=== PATIENT | female | born 1955 | race Caucasian/White ===

== ENCOUNTER 2017-05-07 12:29 | Emergency (ER) | payer BC ==
[2017-05-07 12:41] VITALS: BP 148/70
--- NOTE | 2017-05-07 13:06 | EDM.PDOC ---
ED HPI GENERAL MEDICAL PROBLEM - General Chief Complaint: Genitourinary Problem Stated Complaint: [id number] UTI Time Seen by Provider: 05/07/17 13:02 Source of Information: Reports: Patient History Limitations: Reports: No Limitations - History of Present Illness INITIAL COMMENTS - FREE TEXT/NARRATIVE: 62 yo White female c/o painful urination with frequency since this AM Onset: Today Onset Date: 05/07/17 Onset Time: 08:00 Duration: Hour(s): Location: Reports: Abdomen Quality: Reports: Burning Severity: Mild Lower Abdomen Pain Score (Numeric/FACES): 8 - Related Data Allergies Allergy/AdvReac Type Severity Reaction Status Date / Time corn [[place]] Allergy Stomach Verified 05/07/17 12:37 Upset hydrocodone Allergy Tachycardia Verified 05/07/17 12:37 ibuprofen Allergy Swelling Verified 05/07/17 12:37 milk Allergy Nausea and Verified 05/07/17 12:37 Vomiting wheat Allergy Stomach Verified 05/07/17 12:37 Upset Home Meds: Home Meds Hydrochlorothiazide 12.5 mg PO DAILY 03/23/14 [History] Lisinopril [Prinivil] 40 mg PO DAILY 03/23/14 [History] Metoprolol Tartrate 50 mg PO DAILY 03/23/14 [History] Montelukast [Singulair] 10 mg PO DAILY 03/23/14 [History] glyBURIDE [Diabeta] 1.25 mg PO BIDM 03/23/14 [History] metFORMIN [Glucophage] 1,000 mg PO BIDM 03/23/14 [History] Past Medical History Cardiovascular History: Reports: Hypertension Endocrine/Metabolic History: Reports: Diabetes, Type II Dermatologic History: Reports: Psoriasis - Past Surgical History Female Surgical History: Reports: Section Social & Family History - Family History Family Medical History: Noncontributory - Tobacco Use Smoking Status *Q: Never Smoker Second Hand Smoke Exposure: No - Caffeine Use Caffeine Use: Reports: Tea - Alcohol Use Days Per Week of Alcohol Use: 0 - Recreational Drug Use Recreational Drug Use: No ED ROS GENERAL - Review of Systems Review Of Systems: See Below Constitutional: Reports: No Symptoms HEENT: Reports: No Symptoms Respiratory: Reports: No Symptoms Cardiovascular: Reports: No Symptoms Endocrine: Reports: No Symptoms GI/Abdominal: Reports: Abdominal Pain (suprapubic area) : Reports: Dysuria, Frequency Musculoskeletal: Reports: No Symptoms Skin: Reports: No Symptoms Neurological: Reports: No Symptoms Psychiatric: Reports: No Symptoms Hematologic/Lymphatic: Reports: No Symptoms Immunologic: Reports: No Symptoms ED EXAM, RENAL/ - Physical Exam Exam: See Below Exam Limited By: No Limitations General Appearance: Alert, WD/WN Nose: Normal Inspection Throat/Mouth: Normal Inspection Head: Atraumatic Neck: Normal Inspection Respiratory/Chest: No Respiratory Distress Cardiovascular: Normal Peripheral Pulses GI/Abdominal: Normal Bowel Sounds, Other (tnederness in suprapubic area) Back Exam: Normal Inspection Extremities: Normal Inspection Neurological: Alert, Oriented, CN II-XII Intact Psychiatric: Normal Affect Course - Vital Signs Last Recorded V/S: Last Vital Signs Temp 36.1 C 05/07/17 12:41 Pulse 96 05/07/17 12:41 Resp 18 05/07/17 12:41 BP 148/70 H 05/07/17 12:41 Pulse Ox 97 05/07/17 12:41 - Orders/Labs/Meds Labs: Laboratory Tests 05/07/17 Range/Units 12:44 Urine Color Yellow (YELLOW) Urine Appearance Cloudy (CLEAR) Urine pH 5.5 (5.0-9.0) Ur Specific [place] 1.010 (1.005-1.030) Urine Protein Negative (NEGATIVE) Urine Glucose (UA) Negative (NEGATIVE) Urine Ketones Negative (NEGATIVE) Urine Occult Blood Large H (NEGATIVE) Urine Nitrite Negative (NEGATIVE) Urine Bilirubin Negative (NEGATIVE) Urine Urobilinogen 0.2 (0.2-1.0) mg/dL Ur Leukocyte Esterase Small H (NEGATIVE) Urine RBC 50-75 H /HPF Urine WBC 5-10 H (0-5/HPF) /HPF Ur Epithelial Cells Rare /HPF Urine Bacteria Many H (0-FEW/HPF) /HPF Urine Mucus Not seen /LPF Departure - Departure Time of Disposition: 13:04 Disposition: Home, Self-Care 01 Condition: Good Clinical Impression: UTI (urinary tract infection) Qualifiers: Urinary tract infection type: acute cystitis Hematuria presence: with hematuria Qualified Code(s): N30.01 - Acute cystitis with hematuria - Discharge Information Forms: ED Department Discharge Additional Instructions: Increase intake of Water Take the Medication as directed: Levaquin 250mg QD # 7 Pyridium 100mg TID # 9 F/U w/ PCP
== END 2017-05-07 13:10 | disposition home or self-care (01) ==
LOC: DL.ED 12:29
DX: N30.01 Acute cystitis with hematuria (principal); I10 Essential (primary) hypertension; E11.9 Type 2 diabetes mellitus without complications; Z79.84 Long term (current) use of oral hypoglycemic drugs; Z79.899 Other long term (current) drug therapy; Z88.6 Allergy status to analgesic agent; Z88.5 Allergy status to narcotic agent; Z91.011 Allergy to milk products; Z91.018 Allergy to other foods
CPT/HCPCS: 81001; 99283

== ENCOUNTER 2017-11-05 22:18 | Emergency (ER) | payer BC ==
[2017-11-05 23:06] LABS: CHLORIDE,CL 98 mmol/L (101-111); SODIUM,NA 131 mmol/L (135-145)
[2017-11-05] MEDS ORDERED: Morphine 2 MG/ML Syringe IVPUSH ONE (23:15)
[2017-11-05] MEDS ORDERED: Ondansetron 4 MG/2 ML SDV IV ONE (23:16)
[2017-11-05] MEDS ORDERED: Heparin Sodium/D5W 25,000 UNITS/500 ML BAG IV SCH (23:45)
--- NOTE | 2017-11-05 23:47 | EDM.PDOC ---
ED HPI GENERAL MEDICAL PROBLEM - General Chief Complaint: Chest Pain Stated Complaint: CHEST PAINS/PRESSURE [id number] Time Seen by Provider: 11/05/17 23:42 Source of Information: Reports: Patient History Limitations: Reports: No Limitations - History of Present Illness INITIAL COMMENTS - FREE TEXT/NARRATIVE: ED with spouse. C/O anterior chest pain since 330 this afternoon. Describes as dull ache radiating through back. States is scheduled to have cardiac stent on . Unsure where at "but close to main artery and valve. Has noted increasing SOB over last 2 weeks. Tonight no nausea, cough, sweating or dizziness. Took aspirin prior to coming. 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 - Related Data Allergies Allergy/AdvReac Type Severity Reaction Status Date / Time hydrocodone Allergy Tachycardia Verified 11/05/17 22:53 ibuprofen Allergy Hives Verified 11/05/17 22:53 neomycin Allergy Blisters Verified 11/06/17 01:18 corn [[place]] AdvReac Stomach Verified 11/05/17 22:53 Upset milk AdvReac Nausea and Verified 11/05/17 22:53 Vomiting wheat AdvReac Stomach Verified 11/05/17 22:53 Upset car exhaust Allergy Difficulty Uncoded 11/06/17 01:18 Breathing dye-unknown color Allergy Rash Uncoded 11/06/17 01:18 air freshners AdvReac Difficulty Uncoded 11/06/17 01:18 Breathing smoke AdvReac Difficulty Uncoded 11/06/17 01:18 Breathing Home Meds: Home Meds Lisinopril [Prinivil] 40 mg PO DAILY 03/23/14 [History] Montelukast [Singulair] 10 mg PO BEDTIME PRN 03/23/14 [History] metFORMIN [Glucophage] 1,000 mg PO BIDM 03/23/14 [History] Acyclovir 800 mg PO ASDIRECTED PRN 11/01/17 [History] Calcium Carbonate/Vitamin D3 [Calcium 600-Vit D3 400 Tablet] 2 tab PO DAILY [History] Cholecalciferol (Vitamin D3) [Vitamin D3] 2,000 units PO DAILY 11/01/17 [History ] Fexofenadine [Joselin] 180 mg PO DAILY 11/01/17 [History] Hydrochlorothiazide [Hydrochlorothiazide] 25 mg PO DAILY 11/01/17 [History] Insulin Glargine/Lixisenatide [Soliqua 100 Unit-33 Mcg/ml Pen] 24 units INJECT DAILY 11/01/17 [History] Isosorbide Mononitrate [Imdur] 30 mg PO DAILY 11/01/17 [History] Multivitamin [Multivitamins] 1 cap PO DAILY 11/01/17 [History] Thiamine HCl [Vitamin B-1] 100 mg PO TID 11/01/17 [History] atorvaSTATin [Lipitor] 40 mg PO BEDTIME 11/01/17 [History] Aspirin [Ecotrin] 325 mg PO DAILY 11/06/17 [History] Estrogens, Conjugated [Premarin Vaginal Crm] 0.5 gm VAG .2XWEEK 11/06/17 [ History] Fluconazole [Diflucan] 150 mg PO ASDIRECTED PRN 11/06/17 [History] Metoprolol Succinate [Toprol XL 50mg] 50 mg PO DAILY 11/06/17 [History] Triamcinolone Acetonide [IJD: Triamcinolone Acetonide 0.1% Crm] 15 gm TOP BID PRN 11/06/17 [History] cycloSPORINE [Restasis] 1 each EYEBOTH BID 11/06/17 [History] glyBURIDE [Glyburide] 5 mg PO QAM 11/06/17 [History] Past Medical History HEENT History: Reports: Allergic Rhinitis Cardiovascular History: Reports: CAD, Hypertension Respiratory History: Reports: SOB Genitourinary History: Reports: UTI, Recurrent Endocrine/Metabolic History: Reports: Diabetes, Type II Hematologic History: Reports: Anemia Dermatologic History: Reports: Psoriasis - Infectious Disease History Infectious Disease History: Reports: Chicken Pox, Measles, Mumps - Past Surgical History Female Surgical History: Reports: Section Musculoskeletal Surgical History: Reports: Carpal Tunnel Social & Family History - Family History Family Medical History: Noncontributory - Tobacco Use Smoking Status *Q: Never Smoker Second Hand Smoke Exposure: No - Caffeine Use Caffeine Use: Reports: Other Other Caffeine Use: green tea - Alcohol Use Days Per Week of Alcohol Use: 0 - Recreational Drug Use Recreational Drug Use: No ED ROS GENERAL - Review of Systems Review Of Systems: See Below Constitutional: Reports: No Symptoms HEENT: Reports: No Symptoms Respiratory: Reports: No Symptoms Cardiovascular: Reports: Chest Pain, Dyspnea on Exertion. Denies: Blood Pressure Problem, Claudication, Lightheadedness, Orthopnea, Palpitations, Syncope Endocrine: Reports: No Symptoms GI/Abdominal: Reports: No Symptoms : Reports: No Symptoms Musculoskeletal: Reports: No Symptoms Skin: Reports: No Symptoms Neurological: Reports: No Symptoms ED EXAM, GENERAL - Physical Exam Exam: See Below Exam Limited By: No Limitations General Appearance: Alert, Anxious, Mild Distress Eye Exam: Bilateral Eye: EOMI, PERRL Ears: Normal External Exam, Normal TMs Nose: Normal Inspection Throat/Mouth: Normal Inspection Head: Atraumatic, Normocephalic Respiratory/Chest: No Respiratory Distress, Lungs Clear, Normal Breath Sounds Cardiovascular: Normal Peripheral Pulses, Regular Rate, Rhythm, No Edema GI/Abdominal: Normal Bowel Sounds Neurological: Alert, Oriented, CN II-XII Intact, Normal Cognition Psychiatric: Normal Affect, Normal Mood Skin Exam: Warm, Dry, Intact, Normal Color Course - Vital Signs Last Recorded V/S: Last Vital Signs Temp 98.6 F 11/06/17 00:20 Pulse 106 H 11/06/17 00:20 Resp 17 11/06/17 00:20 BP 143/64 H 11/06/17 00:20 Pulse Ox 96 11/06/17 00:20 - Orders/Labs/Meds Orders: Active Orders 24 hr Category Date Time Status EKG Documentation Completion [RC] URGENT Care 11/05/17 22:45 Active Labs: Laboratory Tests 11/05/17 11/05/17 11/05/17 Range/Units 22:35 22:35 22:35 WBC 6.4 (5.0-10.0) 10^3/uL RBC 3.99 L (4.2-5.4) 10^6/uL Hgb 12.2 (12.0-16.0) g/dL Hct 35.8 L (37.0-47.0) % MCV 89.7 (80-100) fL MCH 30.6 (27.0-34.0) pg MCHC 34.1 (33.0-35.0) g/dL Plt Count 336 (150-450) 10^3/uL Neut % (Auto) 62.0 (42.2-75.2) % Lymph % (Auto) 26.0 (20.5-50.1) % [place] % (Auto) 8.9 H (2-8) % Eos % (Auto) 2.5 (1.0-3.0) % Baso % (Auto) 0.6 (0.0-1.0) % Sodium 131 L (135-145) mmol/L Potassium 4.2 (3.6-5.0) mmol/L Chloride 98 L (101-111) mmol/L Carbon Dioxide 24.0 (21.0-31.0) mmol/L Anion Gap 13.2 BUN 30 H (7-18) mg/dL Creatinine 1.0 (0.6-1.3) mg/dL Est Cr Clr Drug Dosing TNP Estimated GFR (MDRD) 56 BUN/Creatinine Ratio 30.00 Glucose 270 H (74-105) mg/dL Calcium 9.6 (8.4-10.2) mg/dl Total Bilirubin 0.4 (0.2-1.0) mg/dL AST 32 (10-42) IU/L ALT 28 (10-60) IU/L Alkaline Phosphatase 42 (42-121) IU/L CK-MB (CK-2) 6.40 H (0.4-4.7) ng/mL Troponin I 0.64 H* (0.00-0.02) ng/ml Total Protein 7.4 (6.7-8.2) g/dl Albumin 3.9 (3.2-5.5) g/dl Globulin 3.5 Albumin/Globulin Ratio 1.11 Amylase 38 (28-100) U/L Lipase 20 L (22-51) U/L Meds: Medications Discontinued Medications Generic Name Dose Route Start Last Admin Trade Name Freq PRN Reason Stop Dose Admin Heparin Sodium (Porcine) 4,000 units 11/05/17 23:55 11/06/17 00:08 Heparin Sodium IVPUSH 11/05/17 23:56 4,000 units ONETIME ONE Administration Heparin Sodium/Dextrose 25,000 units in 500 mls @ 16.908 mls/hr 11/05/17 23: 45 11/06/17 00:18 Heparin 25,000 Units In D5w 500 Ml IV 12 units/kg/hr TITRATE KEYLA 16.908 mls/hr Protocol Administration 12 UNITS/KG/HR Morphine Sulfate 2 mg 11/05/17 23:15 11/05/17 23:29 Morphine IVPUSH 11/05/17 23:16 2 mg ONETIME ONE Administration Ondansetron HCl 4 mg 11/05/17 23:16 11/05/17 23:25 Zofran IV 11/05/17 23:17 4 mg ONETIME ONE Administration - Radiology Interpretation Free Text/Narrative:: CXR negative - Re-Assessments/Exams Free Text/Narrative Re-Assessment/Exam: 11/05/17 23:[address] Too Viveros, accepting pof patient for further evaluation ofchest pain with elevated troponin Departure - Departure Time of Disposition: 23:48 Disposition: DC/Tfer to Acute Hospital 02 Reason for Transfer *Q: Other Condition: Undetermined Clinical Impression: Acute coronary syndrome Referrals: Lina Santillan MD [Primary Care Provider] - Forms: ED Department Discharge - My Orders Last 24 Hours: My Active Orders 11/05/17 22:45 EKG Documentation Completion [RC] URGENT - Assessment/Plan Last 24 Hours: My Active Orders 11/05/17 22:45 EKG Documentation Completion [RC] URGENT
[2017-11-05] MEDS ORDERED: Heparin Sodium 5,000 Units/ML Vial IVPUSH ONE (23:55)
[2017-11-06 00:47] VITALS: BP 143/64
== END 2017-11-06 00:40 ==
LOC: DL.ED 22:18
DX: I24.9 Acute ischemic heart disease, unspecified (principal); I10 Essential (primary) hypertension; I25.10 Atherosclerotic heart disease of native coronary artery without angina pectoris; E11.9 Type 2 diabetes mellitus without complications; Z79.4 Long term (current) use of insulin; Z79.82 Long term (current) use of aspirin; Z79.899 Other long term (current) drug therapy; Z88.1 Allergy status to other antibiotic agents; Z88.5 Allergy status to narcotic agent; Z88.6 Allergy status to analgesic agent; Z91.011 Allergy to milk products; Z91.018 Allergy to other foods; Z91.09 Other allergy status, other than to drugs and biological substances
CPT/HCPCS: 36415; 71045; 80053; 82150; 82553; 83690; 84484; 85025; 93005; 96365; 96375; 96376; 99285; J1644; J2270; J2405

== ENCOUNTER 2017-11-09 23:27 | Emergency (ER) | payer BC ==
--- NOTE | 2017-11-09 23:30 | EDM.PDOC ---
ED HPI GENERAL MEDICAL PROBLEM - General Stated Complaint: GAS PAIN [id number] Time Seen by Provider: 11/10/17 00:05 Source of Information: Reports: Patient History Limitations: Reports: No Limitations - History of Present Illness INITIAL COMMENTS - FREE TEXT/NARRATIVE: Ed with c/o feeling of abdominal bloating pressure radiating to back and mid sternal chest. Similar symptoms with presentation 11/05 with AMI. Tx to GF and 2 stents placed in RCA. Patient notes doing well and less difficulty breathing than prior to stents until last faustino when pressure started. Patient difficultly rating on painscale, describes pain in general constant annoyance type bout worsens when radiates to midsternal. no sweating or radiation to arm. Onset: Today Lower Chest Pain Score (Numeric/FACES): 4 - Related Data Allergies Allergy/AdvReac Type Severity Reaction Status Date / Time hydrocodone Allergy Tachycardia Verified 11/09/17 23:46 ibuprofen Allergy Hives Verified 11/09/17 23:46 neomycin Allergy Blisters Verified 11/09/17 23:46 corn [[place]] AdvReac Stomach Verified 11/09/17 23:46 Upset milk AdvReac Nausea and Verified 11/09/17 23:46 Vomiting wheat AdvReac Stomach Verified 11/09/17 23:46 Upset car exhaust Allergy Difficulty Uncoded 11/09/17 23:46 Breathing dye-unknown color Allergy Rash Uncoded 11/09/17 23:46 air freshners AdvReac Difficulty Uncoded 11/09/17 23:46 Breathing smoke AdvReac Difficulty Uncoded 11/09/17 23:46 Breathing Home Meds: Home Meds Lisinopril [Prinivil] 40 mg PO DAILY 03/23/14 [History] Montelukast [Singulair] 10 mg PO BEDTIME PRN 03/23/14 [History] metFORMIN [Glucophage] 1,000 mg PO BIDM 03/23/14 [History] Acyclovir 800 mg PO ASDIRECTED PRN 11/01/17 [History] Calcium Carbonate/Vitamin D3 [Calcium 600-Vit D3 400 Tablet] 2 tab PO DAILY [History] Cholecalciferol (Vitamin D3) [Vitamin D3] 2,000 units PO DAILY 11/01/17 [History ] Fexofenadine [Joselin] 180 mg PO DAILY 11/01/17 [History] Hydrochlorothiazide [Hydrochlorothiazide] 25 mg PO DAILY 11/01/17 [History] Insulin Glargine/Lixisenatide [Soliqua 100 Unit-33 Mcg/ml Pen] 24 units INJECT DAILY 11/01/17 [History] Multivitamin [Multivitamins] 1 cap PO DAILY 11/01/17 [History] Thiamine HCl [Vitamin B-1] 100 mg PO TID 11/01/17 [History] atorvaSTATin [Lipitor] 40 mg PO BEDTIME 11/01/17 [History] Aspirin [Ecotrin] 325 mg PO DAILY 11/06/17 [History] Estrogens, Conjugated [Premarin Vaginal Crm] 0.5 gm VAG .2XWEEK 11/06/17 [ History] Fluconazole [Diflucan] 150 mg PO ASDIRECTED PRN 11/06/17 [History] Metoprolol Succinate [Toprol XL 50mg] 50 mg PO DAILY 11/06/17 [History] Triamcinolone Acetonide [IJD: Triamcinolone Acetonide 0.1% Crm] 15 gm TOP BID PRN 11/06/17 [History] cycloSPORINE [Restasis] 1 each EYEBOTH BID 11/06/17 [History] glyBURIDE [Glyburide] 5 mg PO QAM 11/06/17 [History] Clobetasol [Clobetasol Propionate] 1 applic TOP BID 11/09/17 [History] Prasugrel [Effient] 1 tab PO DAILY 11/09/17 [History] Past Medical History HEENT History: Reports: Allergic Rhinitis Cardiovascular History: Reports: CAD, Hypertension Respiratory History: Reports: SOB Genitourinary History: Reports: UTI, Recurrent Endocrine/Metabolic History: Reports: Diabetes, Type II Hematologic History: Reports: Anemia Dermatologic History: Reports: Psoriasis - Infectious Disease History Infectious Disease History: Reports: Chicken Pox, Measles, Mumps - Past Surgical History Female Surgical History: Reports: Section Musculoskeletal Surgical History: Reports: Carpal Tunnel Social & Family History - Family History Family Medical History: Noncontributory - Tobacco Use Smoking Status *Q: Never Smoker Second Hand Smoke Exposure: No - Caffeine Use Caffeine Use: Reports: Other Other Caffeine Use: green tea - Alcohol Use Days Per Week of Alcohol Use: 0 - Recreational Drug Use Recreational Drug Use: No ED ROS GENERAL - Review of Systems Review Of Systems: See Below Constitutional: Reports: Fatigue (today) HEENT: Reports: No Symptoms Respiratory: Reports: Shortness of Breath (increased last 24 hours) Cardiovascular: Reports: Chest Pain (pressure), Dyspnea on Exertion. Denies: Lightheadedness, Orthopnea, Palpitations Endocrine: Reports: No Symptoms GI/Abdominal: Reports: Abdominal Pain (bloating pressure type, last BM today, soft) : Reports: No Symptoms Musculoskeletal: Reports: No Symptoms Skin: Reports: Bruising (right wrist at angiocath site) Neurological: Reports: No Symptoms ED EXAM, GENERAL - Physical Exam Exam: See Below Exam Limited By: No Limitations General Appearance: Alert, Anxious, Mild Distress Eye Exam: Bilateral Eye: EOMI Ears: Normal External Exam Nose: Normal Inspection Throat/Mouth: Normal Inspection, Normal Oropharynx, Normal Voice Head: Atraumatic, Normocephalic Neck: Normal Inspection, Non-Tender Respiratory/Chest: No Respiratory Distress, Lungs Clear, Normal Breath Sounds Cardiovascular: Normal Peripheral Pulses, Regular Rate, Rhythm, No Edema GI/Abdominal: Normal Bowel Sounds, Soft, Distended (abdomen round ). No: Tender Back Exam: Normal Inspection Extremities: Normal Inspection. No: Pedal Edema Neurological: Alert, Oriented, Normal Cognition Psychiatric: Normal Affect, Normal Mood Skin Exam: Warm, Dry, Intact, Normal Color, Ecchymosis (right wrist) Course - Vital Signs Last Recorded V/S: Last Vital Signs Temp 97.3 F 11/09/17 23:58 Pulse 96 11/09/17 23:58 Resp 16 11/09/17 23:58 BP 143/74 H 11/10/17 00:52 Pulse Ox 100 11/09/17 23:58 - Orders/Labs/Meds Orders: Active Orders 24 hr Category Date Time Status EKG 12 Lead [EKG Documentation Completion] [RC] URGENT Care 11/09/17 23:29 Active Labs: Laboratory Tests 11/09/17 11/09/17 11/09/17 Range/Units 23:35 23:35 23:35 WBC 7.2 (5.0-10.0) 10^3/uL RBC 3.96 L (4.2-5.4) 10^6/uL Hgb 12.1 (12.0-16.0) g/dL Hct 35.6 L (37.0-47.0) % MCV 89.9 (80-100) fL MCH 30.6 (27.0-34.0) pg MCHC 34.0 (33.0-35.0) g/dL Plt Count 352 (150-450) 10^3/uL Neut % (Auto) 57.3 (42.2-75.2) % Lymph % (Auto) 28.5 (20.5-50.1) % [place] % (Auto) 9.1 H (2-8) % Eos % (Auto) 4.7 H (1.0-3.0) % Baso % (Auto) 0.4 (0.0-1.0) % Sodium 133 L (135-145) mmol/L Potassium 3.5 L (3.6-5.0) mmol/L Chloride 97 L (101-111) mmol/L Carbon Dioxide 24.0 (21.0-31.0) mmol/L Anion Gap 15.5 BUN 23 H (7-18) mg/dL Creatinine 1.0 (0.6-1.3) mg/dL Est Cr Clr Drug Dosing 47.63 mL/min Estimated GFR (MDRD) 56 BUN/Creatinine Ratio 23.00 Glucose 88 (74-105) mg/dL Calcium 9.8 (8.4-10.2) mg/dl Total Bilirubin 0.5 (0.2-1.0) mg/dL AST 29 (10-42) IU/L ALT 32 (10-60) IU/L Alkaline Phosphatase 44 (42-121) IU/L CK-MB (CK-2) 4.10 (0.4-4.7) ng/mL Troponin I 0.80 H* (0.00-0.02) ng/ml Total Protein 7.8 (6.7-8.2) g/dl Albumin 4.0 (3.2-5.5) g/dl Globulin 3.8 Albumin/Globulin Ratio 1.05 Meds: Medications Discontinued Medications Generic Name Dose Route Start Last Admin Trade Name Freq PRN Reason Stop Dose Admin Aspirin 160 mg 11/10/17 00:20 11/10/17 00:52 Aspirin PO 11/10/17 00:21 162 mg ONETIME ONE Administration Sodium Chloride 1,000 mls @ 100 mls/hr 11/10/17 00:11 11/10/17 00:18 Normal Saline IV 11/10/17 10:10 100 mls/hr .BOLUS ONE Administration Morphine Sulfate 2 mg 11/09/17 23:56 11/10/17 00:02 Morphine IVPUSH 11/09/17 23:57 2 mg ONETIME ONE Administration Nitroglycerin 0.4 mg 11/10/17 00:11 11/10/17 00:18 Nitrostat SL 11/10/17 00:12 0.4 mg ONETIME ONE Administration Nitroglycerin 0.4 mg 11/10/17 00:50 11/10/17 00:52 Nitrostat SL 11/10/17 00:51 0.4 mg ONETIME ONE Administration - Re-Assessments/Exams Free Text/Narrative Re-Assessment/Exam: 11/10/17 03:24 Decrease in chest pain with Morphine and nitro. TC consult [facility] . Dr. Verma accepting of patient for further eval of chest pain abdominal discomfort , recent cardiac stents. Tx via [facility]. Departure - Departure Time of Disposition: 01:15 Disposition: DC/Tfer to Acute Hospital 02 Reason for Transfer *Q: Other Condition: Undetermined Clinical Impression: Status post primary angioplasty with coronary stent Chest pain Qualifiers: Chest pain type: unspecified Qualified Code(s): R07.9 - Chest pain, unspecified Referrals: Deanne Lemons PA [Primary Care Provider] - Forms: ED Department Discharge - My Orders Last 24 Hours: My Active Orders 11/09/17 23:29 EKG 12 Lead [EKG Documentation Completion] [RC] URGENT - Assessment/Plan Last 24 Hours: My Active Orders 11/09/17 23:29 EKG 12 Lead [EKG Documentation Completion] [RC] URGENT
[2017-11-10] MEDS: Morphine 2 MG/ML Syringe IVPUSH ONE (00:02)
[2017-11-10] MEDS: Sodium Chloride 0.9% 1,000 ML IV ONE (00:18)
[2017-11-10] MEDS: Nitroglycerin 0.4 MG Tab.SL SL ONE ×2 (00:18→00:52)
[2017-11-10] MEDS: Aspirin 81 MG Tab.Chew PO ONE (00:52)
[2017-11-10 00:53] VITALS: BP 143/74
--- NOTE | 2017-11-13 15:50 | EKG ---
11/09/2017 - ABE READ - FINDINGS: This 12-lead EKG shows a grossly wandering baseline in leads V4, V5, and V6, rendering these three leads unreadable. The remainder of this 12-lead EKG from the limb leads through V3 shows a normal sinus rhythm with a ventricular rate of 87. There is a left anterior fascicular block. Within the readable limb leads and the three precordial leads, there are no acute ST-T wave changes seen. [facility] /[id number] MTDD
== END 2017-11-10 01:07 ==
LOC: DL.ED 23:27
DX: R07.9 Chest pain, unspecified (principal); I10 Essential (primary) hypertension; E11.9 Type 2 diabetes mellitus without complications; Z88.5 Allergy status to narcotic agent; Z88.8 Allergy status to other drugs, medicaments and biological substances; Z91.011 Allergy to milk products; Z79.899 Other long term (current) drug therapy; Z79.4 Long term (current) use of insulin; Z79.82 Long term (current) use of aspirin; Z98.61 Coronary angioplasty status
CPT/HCPCS: 36415; 71045; 80053; 82553; 84484; 85025; 93005; 96361; 96374; 99285; A9270; J2270; J7030

== ENCOUNTER 2019-11-11 13:19 | Emergency (ER) | payer MEDICARE, BC ==
[2019-11-11 13:42] VITALS: BP 140/58; PULSE 91
--- NOTE | 2019-11-11 15:56 | EDM.PDOC ---
Scribed by Jada Barroso 11/11/19 1285 for Bisi Luo NP ED HPI GENERAL MEDICAL PROBLEM - General Chief Complaint: Lower Extremity Injury/Pain Stated Complaint: FELL ON ICE/BACK OF THIGH HURTS Time Seen by Provider: 11/11/19 15:26 Source of Information: Reports: Patient, RN, RN Notes Reviewed History Limitations: Reports: No Limitations - History of Present Illness INITIAL COMMENTS - FREE TEXT/NARRATIVE: Patient is a 64-year-old male who presents to the ED with complaint of right thigh pain after fall 3 hours ago. Patient reports went to [place]. She reports that on the way to [place]oo she slipped on ice and fell forward. She tried catching herself with her left out-stretched hand, but it was to late. She reports hitting her left knee on the ground. She did not hit her head. She denies loss of consciousness. She was able to ambulate. Denies any previous injuries. Onset: Today Duration: Constant Quality: Reports: Ache Severity: Moderate Improves with: Reports: None Worsens with: Reports: None Associated Symptoms: Reports: No Other Symptoms Right Thigh Pain Score (Numeric/FACES): 4 - Related Data Allergies Allergy/AdvReac Type Severity Reaction Status Date / Time hydrocodone Allergy Tachycardia Verified 11/11/19 13:50 ibuprofen Allergy Hives Verified 11/11/19 13:50 neomycin Allergy Blisters Verified 11/11/19 13:50 corn [[place]] AdvReac Stomach Verified 11/11/19 13:50 Upset milk AdvReac Nausea and Verified 11/11/19 13:50 Vomiting wheat AdvReac Stomach Verified 11/11/19 13:50 Upset car exhaust Allergy Difficulty Uncoded 11/11/19 13:50 Breathing dye-unknown color Allergy Rash Uncoded 11/11/19 13:50 air freshners AdvReac Difficulty Uncoded 11/11/19 13:50 Breathing smoke AdvReac Difficulty Uncoded 11/11/19 13:50 Breathing Home Meds: Home Meds Montelukast [Singulair] 10 mg PO BEDTIME PRN 03/23/14 [History] lisinopriL [Prinivil] 40 mg PO DAILY 03/23/14 [History] metFORMIN [Glucophage] 1,000 mg PO BIDM 03/23/14 [History] Calcium Carbonate/Vitamin D3 [Calcium 600-Vit D3 400 Tablet] 2 tab PO DAILY [History] Cholecalciferol (Vitamin D3) [Vitamin D3] 2,000 units PO DAILY 11/01/17 [History ] Fexofenadine [Joselin] 180 mg PO DAILY 11/01/17 [History] Insulin Glargine/Lixisenatide [[place]iqua 100 Unit-33 Mcg/ml Pen] 24 units INJECT DAILY 11/01/17 [History] Multivitamin [Multivitamins] 1 cap PO DAILY 11/01/17 [History] Thiamine HCl [Vitamin B-1] 100 mg PO TID 11/01/17 [History] atorvaSTATin [Lipitor] 40 mg PO BEDTIME 11/01/17 [History] hydroCHLOROthiazide [Hydrochlorothiazide] 25 mg PO DAILY 11/01/17 [History] Metoprolol Succinate [Toprol XL 50mg] 50 mg PO DAILY 11/06/17 [History] Triamcinolone Acetonide [IJD: Triamcinolone Acetonide 0.1% Crm] 15 gm TOP BID PRN 11/06/17 [History] cycloSPORINE [Restasis] 1 each EYEBOTH BID 11/06/17 [History] glyBURIDE [Glyburide] 5 mg PO QAM 11/06/17 [History] Clobetasol [Clobetasol Propionate] 1 applic TOP BID 11/09/17 [History] Prasugrel [Effient] 1 tab PO DAILY 11/09/17 [History] Aspirin [Adult Low Dose Aspirin EC] 81 mg PO DAILY 11/16/17 [History] Isosorbide Mononitrate [Imdur] 30 mg PO DAILY 12/19/17 [History] Past Medical History HEENT History: Reports: Allergic Rhinitis Cardiovascular History: Reports: CAD, Hypertension, Stents Other Cardiovascular History: Recent CO 11/05/2017 with PTCA and Stents x2 Respiratory History: Reports: None Other Respiratory History: states has trouble with allergies. Gastrointestinal History: Reports: None Other Gastrointestinal History: states has trouble with gas. Genitourinary History: Reports: UTI, Recurrent [employer] History: Reports: None Musculoskeletal History: Reports: None Neurological History: Reports: None Psychiatric History: Reports: None Endocrine/Metabolic History: Reports: Diabetes, Type II Hematologic History: Reports: Anemia Immunologic History: Reports: None Oncologic (Cancer) History: Reports: None Dermatologic History: Reports: Psoriasis - Infectious Disease History Infectious Disease History: Reports: Chicken Pox, Measles, Mumps - Past Surgical History Head Surgeries/Procedures: Reports: None Female Surgical History: Reports: Section Musculoskeletal Surgical History: Reports: Carpal Tunnel Dermatological Surgical History: Reports: None Social & Family History - Family History Family Medical History: Noncontributory - Tobacco Use Smoking Status *Q: Never Smoker - Caffeine Use Caffeine Use: Reports: Tea Other Caffeine Use: green tea - Recreational Drug Use Recreational Drug Use: No - Living Situation & Occupation Living situation: Reports: , with Spouse Review of Systems - Review of Systems Review Of Systems: Comprehensive ROS is negative, except as noted in HPI. ED EXAM, GENERAL - Physical Exam Exam: See Below Exam Limited By: No Limitations General Appearance: Alert, WD/WN, Mild Distress Head: Atraumatic, Normocephalic Neck: Normal Inspection, Supple, Non-Tender, Full Range of Motion Respiratory/Chest: No Respiratory Distress, Lungs Clear, Normal Breath Sounds, No Accessory Muscle Use, Chest Non-Tender Cardiovascular: Normal Peripheral Pulses, Regular Rate, Rhythm, No Edema, No Gallop, No JVD, No Murmur, No Rub GI/Abdominal: Normal Bowel Sounds, Soft, Non-Tender, No Organomegaly, No Distention, No Abnormal Bruit, No Mass (Female) Exam: Deferred Rectal (Female) Exam: Deferred Back Exam: Normal Inspection, Full Range of Motion, NT Extremities: Normal Inspection, No Pedal Edema, Normal Capillary Refill, Other ( mild pain reported with palpation of at the back of the right thigh. Abrasion noted on the left knee. ) Neurological: Alert, Oriented, CN II-XII Intact, Normal Cognition, Normal Gait, Normal Reflexes, No Motor/Sensory Deficits Psychiatric: Normal Affect, Normal Mood Lymphatic: No Adenopathy Course - Vital Signs Last Recorded V/S: Last Vital Signs Temp 97.1 F 11/11/19 13:42 Pulse 91 11/11/19 13:42 Resp 20 11/11/19 13:42 BP 140/58 L 11/11/19 13:42 Pulse Ox 96 11/11/19 13:42 - Radiology Interpretation Free Text/Narrative:: Right hip x-rays: No evidence of acute fracture. No evidence of acute dislocation. There are mild degenerative changes in the right hip joint. See rad report. - Re-Assessments/Exams Free Text/Narrative Re-Assessment/Exam: Reviewed exam and x-ray findings with patient and . Take medications as prescribed. Icy hot over the counter muscle relaxer. Rest. Follow up in clinic with PCP. RX: Flexeril 5mg nightly p.r.n. Departure - Departure Time of Disposition: 15:54 Disposition: Home, Self-Care 01 Condition: Good Clinical Impression: Contusion of thigh Fall Qualifiers: Encounter type: initial encounter Qualified Code(s): W19.XXXA - Unspecified fall, initial encounter - Discharge Information Instructions: Contusion, [id number] Forms: ED Department Discharge Additional Instructions: Take medications as prescribed. Icy hot over the counter muscle relaxer. Rest. Follow up in clinic with PCP. RX: Flexeril 5mg nightly p.r.n. Sepsis Event Note - Evaluation Sepsis Screening Result: No Definite Risk - Focused Exam Vital Signs: Vital Signs Temp Pulse Resp BP Pulse Ox 11/11/19 13:42 97.1 F 91 20 140/58 L 96 Date Exam was Performed: 11/11/19 Time Exam was Performed: 15:56 I have read and agree with the documentation that has been completed regarding this visit. By signing this record, I attest that the documentation was completed in my physical presence and is an accurate record of the encounter.
== END 2019-11-11 16:00 | disposition home or self-care (01) ==
LOC: DL.ED 13:19
DX: S70.11XA Contusion of right thigh, initial encounter (principal); S80.212A Abrasion, left knee, initial encounter; I10 Essential (primary) hypertension; I25.10 Atherosclerotic heart disease of native coronary artery without angina pectoris; E11.9 Type 2 diabetes mellitus without complications; Z88.5 Allergy status to narcotic agent; Z88.8 Allergy status to other drugs, medicaments and biological substances; Z91.048 Other nonmedicinal substance allergy status; Z91.011 Allergy to milk products; Z91.018 Allergy to other foods; Z79.899 Other long term (current) drug therapy; Z79.4 Long term (current) use of insulin; Z79.82 Long term (current) use of aspirin; W00.0XXA Fall on same level due to ice and snow, initial encounter
CPT/HCPCS: 99283; 99283-25

== ENCOUNTER 2023-05-24 07:31 | Day surgery (SDC) | payer MEDICARE, BC ==
[~2023-05-24 07:31] MED LIST: Dextrose 5%-0.45% NaCl 1,000 ML IV SCH
[2023-05-24] MEDS ORDERED: Midazolam 1 MG/ML 2 ML SDV IV ONE ×7 (07:32→08:21)
[2023-05-24] MEDS ORDERED: fentaNYL 100 MCG/2 ML SDV IV ONE ×4 (07:32→08:28)
[2023-05-24] MEDS ORDERED: fentaNYL 100 MCG/2 ML SDV ONE (07:59)
[2023-05-24] MEDS ORDERED: Midazolam 1 MG/ML 2 ML SDV ONE (07:59)
[2023-05-24 10:01] VITALS: BP 115/53; PULSE 68
== END 2023-05-24 10:10 | disposition home or self-care (01) ==
LOC: DL.ENDO 07:31
PROVIDERS: ATTEND Internal Medicine Gastroenterology
DX: Z12.11 Encounter for screening for malignant neoplasm of colon (principal); K62.1 Rectal polyp; K57.30 Diverticulosis of large intestine without perforation or abscess without bleeding; D64.9 Anemia, unspecified; E78.5 Hyperlipidemia, unspecified; I25.10 Atherosclerotic heart disease of native coronary artery without angina pectoris; I12.9 Hypertensive chronic kidney disease with stage 1 through stage 4 chronic kidney disease, or unspecified chronic kidney disease; E11.22 Type 2 diabetes mellitus with diabetic chronic kidney disease; N18.9 Chronic kidney disease, unspecified; E66.09 Other obesity due to excess calories; Z88.8 Allergy status to other drugs, medicaments and biological substances; Z95.5 Presence of coronary angioplasty implant and graft; M54.50 Low back pain, unspecified; N39.0 Urinary tract infection, site not specified; Z98.890 Other specified postprocedural states; Z68.31 Body mass index [BMI] 31.0-31.9, adult; Z88.5 Allergy status to narcotic agent; Z88.1 Allergy status to other antibiotic agents
CPT/HCPCS: 45385; 88305; J2250; J3010; J7042